=== PATIENT | female | born 1960 | race Caucasian/White ===

== ENCOUNTER 2022-10-02 13:11 | Emergency (ER) | payer OTHER ==
[~2022-10-02] VITALS: Ht 162.6 cm; Wt 90.7 kg
[2022-10-02] MEDS ORDERED: PRED20 PO (14:26)
== END 2022-10-02 14:49 | disposition home or self-care (01) ==
LOC: ER 13:11
DX: L23.7 Allergic contact dermatitis due to plants, except food (principal); Z88.8 Allergy status to other drugs, medicaments and biological substances
CPT/HCPCS: J7512